=== PATIENT | male | born 1990 | race Caucasian/White ===

== ENCOUNTER 2018-04-05 00:19 | Emergency (ER) | payer MEDICAID, OTHER ==
[~2018-04-05] VITALS: Ht 177.8 cm; Wt 86.2 kg
[2018-04-05 00:20] VITALS: BP 163/108
--- NOTE | 2018-04-05 00:20 | NUR ---
TO [employer] ACCOMPANIED BY RENETTA ONEAL FOR PREBOOK
--- NOTE | 2018-04-05 00:20 | NUR ---
[employer] FOR [employer]. PT IS UNCOOPERATIVE, UNABLE TO OBTAIN MED HX
[2018-04-05 00:23] VITALS: BP 163/108
--- NOTE | 2018-04-05 02:11 | NUR ---
[facility] [employer]. PATIENT EXAMINED BY DR. OCONNELL. PATIENT MEDICALLY CLEARED AND RELEASED IN CUSTODY IN STABLE CONDITION. ORIGINAL PRE-BOOK FORM GIVEN TO OFFICER ELLI.
== END 2018-04-05 02:06 ==
LOC: MED 00:19
DX: R94.31 Abnormal electrocardiogram [ECG] [EKG] (principal); Z72.89 Other problems related to lifestyle; Z88.8 Allergy status to other drugs, medicaments and biological substances
CPT/HCPCS: 93005; 99283